=== PATIENT | female | born 1975 | race Caucasian/White ===

== ENCOUNTER 2017-05-12 09:52 | Emergency (ER) | payer SELFPAY ==
[2017-05-12 10:02] VITALS: BP 110/76; PULSE 116; RESP 20; TEMP 99.7; O2SAT 100
--- NOTE | 2017-05-12 10:52 | C.PDOC ---
History Of Present Illness 41 yr old female presents to the ER with complaints of fever, body aches, sore throat and productive cough for 2 days. 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 Denies chest pain, SOB, nausea, vomiting, abdominal pain, diarrhea, dysuria, headache or dizziness. Time Seen by Provider: 05/12/17 10:10 Chief Complaint (Nursing): Flu-like Symptoms History Per: Patient History/Exam Limitations: no limitations Onset/Duration Of Symptoms: Days (2) Sick Contacts (Context): Individual(s) At Work Past Medical History Reviewed: Historical Data, Nursing Documentation, Vital Signs Vital Signs: Last Vital Signs Temp 99.7 F H 05/12/17 09:57 Pulse 116 H 05/12/17 09:57 Resp 20 05/12/17 11:14 BP 110/76 05/12/17 09:57 Pulse Ox 100 05/12/17 10:55 - Medical History PMH: Anemia, Anxiety, Diabetes, Hypercholesterolemia Surgical History: Appendectomy Family History: States: No Known Family Hx - Social History Hx Tobacco Use: No Hx Alcohol Use: No Hx Substance Use: No - Immunization History Hx Tetanus Toxoid Vaccination: No Hx Influenza Vaccination: No Hx Pneumococcal Vaccination: No Review Of Systems Except As Marked, All Systems Reviewed And Found Negative. Constitutional: Positive for: Fever (subjective), Other (+ body aches) ENT: Positive for: Throat Pain (sore throat) Cardiovascular: Negative for: Chest Pain Respiratory: Positive for: Cough (productive). Negative for: Shortness of Breath Gastrointestinal: Negative for: Nausea, Vomiting, Abdominal Pain, Diarrhea Genitourinary: Negative for: Dysuria Neurological: Negative for: Headache, Dizziness Physical Exam - Physical Exam Appears: Non-toxic, In Acute Distress (mild uncomfortable) Skin: Warm, Dry, No Rash Eye(s): bilateral: Normal Inspection, PERRL, EOMI Ear(s): Bilateral: Normal Oral Mucosa: Moist Throat: Normal, No Erythema, No Exudate, Other (occasional cough) Neck: Normal, Normal ROM, Supple Cardiovascular: Rhythm Regular, No Murmur Respiratory: Normal Breath Sounds, No Rales, No Rhonchi, No Stridor, No Wheezing Gastrointestinal/Abdominal: Normal Exam, Soft, No Tenderness, No Guarding, No Rebound Extremity: Normal ROM, No Swelling Neurological/Psych: Oriented x3, Normal Speech ED Course And Treatment O2 Sat by Pulse Oximetry: 100 (RA) Pulse Ox Interpretation: Normal Progress Note: PLAN: Tamiflu PO, Tessalon Perles PO, Motrin PO & Reeval. Disposition Counseled Patient/Family Regarding: Diagnosis, Need For Followup, Rx Given - Disposition Referrals: Eric Betancur Jr., MD [Medical Doctor] - Disposition: HOME/ ROUTINE Disposition Time: 10:50 Condition: STABLE Additional Instructions: FOLLOW UP WITH YOUR DOCTOR IN 1-2 DAYS DRINK PLENTY OF FLUIDS USE MEDICATIONS DIRECTED RETURN TO ER IF SYMPTOMS WORSEN Prescriptions: Benzonatate [Tessalon Perles] 100 mg PO BID PRN #15 sgl PRN Reason: Cough Ibuprofen [Motrin Tab] 600 mg PO Q6 PRN #30 tab PRN Reason: fever/pain Oseltamivir Phosphate [Tamiflu] 75 mg PO BID #10 capsule Instructions: Viral Syndrome (ED) Forms: [facility] (Divehi), Work Excuse Print Language: PUERTO RICAN - Clinical Impression Clinical Impression: Influenza-like illness - Scribe Statement The provider has reviewed the documentation as recorded by the Windy Rodriguez Provider Attestation: All medical record entries made by the Yvonneibyen were at my direction and personally dictated by me. I have reviewed the chart and agree that the record accurately reflects my personal performance of the history, physical exam, medical decision making, and the department course for this patient. I have also personally directed, reviewed, and agree with the discharge instructions and disposition.
== END 2017-05-12 11:14 | disposition home or self-care (01) ==
LOC: C.ER 09:52
DX: J11.1 Influenza due to unidentified influenza virus with other respiratory manifestations (principal); E78.00 Pure hypercholesterolemia, unspecified; E11.9 Type 2 diabetes mellitus without complications

== ENCOUNTER 2017-12-29 10:31 | Emergency (ER) | payer MEDICAID ==
[2017-12-29 10:46] VITALS: RESP 16; TEMP 99; O2SAT 96
--- NOTE | 2017-12-29 11:34 | C.PDOC ---
History Of Present Illness 42-year-old female, PMHx includes chronic back pain, presents to the emergency department for evaluation of right flank pain and right lower back pain that has been worsening gradually over the past few days. Patient states she has had similar symptoms in the past. She denies recent trauma, injuries or any other associated symptoms. No other complaints at this time. Time Seen by Provider: 12/29/17 10:47 Chief Complaint (Nursing): Back Pain History Per: Patient History/Exam Limitations: no limitations Onset/Duration Of Symptoms: Days Past Medical History Reviewed: Historical Data, Nursing Documentation, Vital Signs Vital Signs: Last Vital Signs Temp 99.0 F 12/29/17 10:41 Pulse 83 12/29/17 10:41 Resp 16 12/29/17 10:41 BP 122/83 12/29/17 10:41 Pulse Ox 96 12/29/17 10:41 - Medical History PMH: Anemia, Anxiety, Diabetes, Hypercholesterolemia Surgical History: Appendectomy Family History: States: No Known Family Hx - Social History Hx Tobacco Use: No Hx Alcohol Use: No Hx Substance Use: No - Immunization History Hx Tetanus Toxoid Vaccination: No Hx Influenza Vaccination: No Hx Pneumococcal Vaccination: No Review Of Systems Constitutional: Negative for: Fever Cardiovascular: Negative for: Chest Pain Respiratory: Negative for: Shortness of Breath Gastrointestinal: Negative for: Nausea, Vomiting Genitourinary: Negative for: Dysuria Musculoskeletal: Positive for: Back Pain Physical Exam - Physical Exam Appears: Non-toxic, No Acute Distress Skin: Warm, Dry, No Rash Head: Atraumatic, Normacephalic Eye(s): bilateral: Normal Inspection Nose: Normal Oral Mucosa: Moist Lips: Normal Appearing Neck: Normal ROM Cardiovascular: Rhythm Regular, No Murmur Respiratory: Normal Breath Sounds Back: CVA Tenderness (right), Paraspinal Tenderness (right lumbar) Extremity: Normal ROM, No Deformity Neurological/Psych: Oriented x3, Normal Speech ED Course And Treatment O2 Sat by Pulse Oximetry: 96 Pulse Ox Interpretation: Normal (RA) Disposition Counseled Patient/Family Regarding: Studies Performed, Diagnosis, Need For Followup, Rx Given - Disposition Referrals: Melisa Ely [Primary Care Provider] - Disposition: HOME/ ROUTINE Disposition Time: 11:38 Condition: STABLE Additional Instructions: LIght duty Take medication as prescribed Follow up with PMD in 2-3 days for re-evaluation. return to ED if any worsening or new changes. Prescriptions: Gabapentin [Neurontin] 300 mg PO Q12 #10 cap Methocarbamol [Robaxin] 500 mg PO TID #20 tab Instructions: Low Back Pain (DC) Forms: [facility] (Maori) - Clinical Impression Clinical Impression: Lumbar sprain - Scribe Statement The provider has reviewed the documentation as recorded by the Scribe (Lai Olivo) All medical record entries made by the Scribe were at my direction and personally dictated by me. I have reviewed the chart and agree that the record accurately reflects my personal performance of the history, physical exam, medical decision making, and the department course for this patient. I have also personally directed, reviewed, and agree with the discharge instructions and disposition.
[2017-12-29 11:36] LABS: HCG,QUALITATIVE URINE NEGATIVE (NEGATIVE)
[2017-12-29 11:46] LABS: SQUAMOUS EPITHIAL 12 /hpf (0-5); URINE BACTERIA RARE (<OCC); URINE BILIRUBIN NEGATIVE (NEGATIVE); URINE BLOOD NEGATIVE (NEGATIVE); URINE CLARITY Hazy (Clear); URINE COLOR Yellow (YELLOW); URINE GLUCOSE (UA) NORMAL (Normal); URINE LEUKOCYTE ESTERASE NEG Leu/uL (Negative); URINE PROTEIN NEGATIVE (NEGATIVE); URINE UROBILINOGEN NORMAL mg/dL (0.2-1.0)
[2017-12-29 12:13] VITALS: BP 112/79; PULSE 82
== END 2017-12-29 12:12 | disposition home or self-care (01) ==
LOC: C.ER 10:31
DX: S33.5XXA Sprain of ligaments of lumbar spine, initial encounter (principal); X58.XXXA Exposure to other specified factors, initial encounter; E11.9 Type 2 diabetes mellitus without complications; E78.00 Pure hypercholesterolemia, unspecified

== ENCOUNTER 2018-01-01 11:16 | Emergency (ER) | payer MEDICAID ==
[2018-01-01 11:28] VITALS: BP 120/80; PULSE 92; RESP 16; TEMP 97.9; O2SAT 99
[2018-01-01] MEDS ORDERED: Lidocaine 5% Patch TD STA (11:49)
--- NOTE | 2018-01-01 11:51 | C.PDOC ---
History Of Present Illness 42 year old female with past medical history of chronic lower back pain presents to the ER for lower back pain. Patient states she has been having lower back pain for years. She states she had an MRI done 8 years ago which showed herniated disk. She states she used to get back injections with a pain management physician but they no longer will see her until she has another MRI (which she has been denies by her insurance). Patient states she was previously here in the ER on 12/29/17 for the same complaint and she feels like nothing is helping. She states she has been taking the muscle relaxer, Gabapentin and Motrin for her pain. She denies recent trauma, injuries, saddle anesthesia, numbness or tingling. Time Seen by Provider: 01/01/18 11:25 Chief Complaint (Nursing): Back Pain Past Medical History Vital Signs: Last Vital Signs Temp 97.9 F 01/01/18 11:26 Pulse 92 H 01/01/18 11:26 Resp 16 01/01/18 11:26 BP 120/80 01/01/18 11:26 Pulse Ox 99 01/01/18 11:26 - Medical History PMH: Anemia, Anxiety, Diabetes, Hypercholesterolemia Surgical History: Appendectomy Family History: States: Unknown Family Hx - Social History Hx Tobacco Use: No Hx Alcohol Use: No Hx Substance Use: No - Immunization History Hx Tetanus Toxoid Vaccination: No Hx Influenza Vaccination: No Hx Pneumococcal Vaccination: No Review Of Systems Constitutional: Negative for: Fever, Chills Cardiovascular: Negative for: Chest Pain, Palpitations Respiratory: Negative for: Shortness of Breath Musculoskeletal: Positive for: Back Pain Neurological: Negative for: Weakness, Numbness Physical Exam - Physical Exam Appears: Non-toxic Head: Atraumatic, Normacephalic Eye(s): bilateral: Normal Inspection, PERRL Cardiovascular: Rhythm Regular Respiratory: Normal Breath Sounds Back: Muscle Spasm (L2-L4 muscle tenderness ), No Straight Leg Raising ED Course And Treatment O2 Sat by Pulse Oximetry: 99 Medical Decision Making Medical Decision Making: Patient was given Toradol IM and a Lidoderm patch. Counselled patient to follow up with her PMD for further management of her acute on chronic condition. Counselled patient to continue taking Motrin as needed for pain; Gabapentin and the muscle relaxer. Disposition Discussed With : Connie Lozada Doctor Will See Patient In The: ED - Disposition Referrals: Melisa Ely [Non-Staff] - Disposition: HOME/ ROUTINE Disposition Time: 11:57 Condition: FAIR Additional Instructions: Continue taking Gabapentin 300 mg PO one tablet twice a day; Methocarbamol [Robaxin] 500 mg PO one tablet three times per day; Motrin 600mg every 6 hours as needed for pain with food. Patient was also given a prescription for pepcid 20mg one tablet twice a day. Prescriptions: Famotidine [Pepcid] 20 mg PO BID #60 tablet Instructions: Low Back Pain (DC) Forms: [email or web address] (Sol[place] Islander) Print Language: ROMANSH - Clinical Impression Clinical Impression: Lumbar back pain - PA / CRYSTAL SLICER / Resident Statement / has reviewed & agrees with the documentation as recorded. / has examined the patient and agrees with the treatment plan.
[2018-01-01] MEDS ORDERED: Lidocaine 5% Patch TD ONE (11:55)
== END 2018-01-01 12:05 | disposition home or self-care (01) ==
LOC: C.ER 11:16
DX: M54.5 Low back pain (principal)
CPT/HCPCS: 96372; 99283; J1885